=== PATIENT | male | born 1955 | race African-American/Black ===

== ENCOUNTER 2017-01-30 09:12 | Emergency (ER) | payer BC ==
[2017-01-30 09:16] VITALS: BP 170/79
[2017-01-30] MEDS ORDERED: DEXAMETHASONE SOD PHOS INJ 10 MG/1 ML VIAL IM ONE (09:30)
--- NOTE | 2017-01-30 09:36 | ER Document Report ---
ED General - General Chief Complaint: Hip Pain Stated Complaint: HIP PAIN Time Seen by Provider: 01/30/17 09:24 Mode of Arrival: Ambulatory Information source: Patient Notes: 61-year-old male history of back pain presents with complaints of hip pain and back pain of 2 day duration. Patient notes he was taking his oxycodone with no improvement. Patient denies any cauda equina concerns. Otherwise patient is at baseline denies any traumatic incidents denies any IV drug use TRAVEL OUTSIDE OF THE [place] IN LAST 30 DAYS: No - HPI Onset: Other - 2-3 day duration Onset/Duration: Persistent Quality of pain: Achy Severity: Mild Pain Level: 1 Associated symptoms: Body/muscle aches Exacerbated by: Movement Relieved by: Denies Similar symptoms previously: Yes Recently seen / treated by doctor: Yes - Related Data Allergies/Adverse Reactions: celecoxib [From Celebrex] Allergy (Severe, Verified 01/30/17 09:15) rash Past Medical History - Social History Smoking Status: Current Every Day Smoker Cigarette use (# per day): Yes Chew tobacco use (# tins/day): No Smoking Education Provided: No Frequency of alcohol use: None Drug Abuse: None Family History: Reviewed & Not Pertinent - Past Medical History Cardiac Medical History: Reports: Hx Hypertension - on meds Denies: Hx Coronary Artery Disease, Hx Heart Attack Pulmonary Medical History: Denies: Hx Asthma, Hx Bronchitis, Hx COPD, Hx Pneumonia Neurological Medical History: Denies: Hx Cerebrovascular Accident, Hx Seizures Endocrine Medical History: Reports: Hx Diabetes Mellitus Type 2 Renal/ Medical History: Denies: Hx Peritoneal Dialysis Musculoskeltal Medical History: Reports Hx Arthritis - all over, Reports Hx Musculoskeletal Deformity - Immunizations Immunizations up to date: Yes Hx Diphtheria, Pertussis, Tetanus Vaccination: No Review of Systems - Review of Systems Notes: REVIEW OF SYSTEMS: CONSTITUTIONAL : Denies fever, chills, or sweats. Denies recent illness. EENT: Denies eye, ear, throat, or mouth pain or symptoms. Denies nasal or sinus congestion or discharge. Denies throat, tongue, or mouth swelling or difficulty swallowing. CARDIOVASCULAR: Denies chest pain. Denies palpitations or racing or irregular heart beat. Denies ankle edema. RESPIRATORY: Denies cough, cold, or chest congestion. Denies shortness of breath, difficulty breathing, or wheezing. GASTROINTESTINAL: Denies abdominal pain or distention. Denies nausea, vomiting , or diarrhea. Denies blood in vomitus, stools, or per rectum. Denies black, tarry stools. Denies constipation. GENITOURINARY: Denies difficulty urinating, painful urination, burning, frequency, blood in urine, or discharge. MUSCULOSKELETAL: Admits to back pain hip pain right upper side pain SKIN: Denies rash, lesions or sores. HEMATOLOGIC : Denies easy bruising or bleeding. LYMPHATIC: Denies swollen, enlarged glands. NEUROLOGICAL: Denies confusion or altered mental status. Denies passing out or loss of consciousness. Denies dizziness or lightheadedness. Denies headache. Denies weakness or paralysis or loss of use of either side. Denies problems with gait or speech. Denies sensory loss, numbness, or tingling. Denies seizures. PSYCHIATRIC: Denies anxiety or stress. Denies depression, suicidal ideation, or homicidal ideation. ALL OTHER SYSTEMS REVIEWED AND NEGATIVE. Dictation was performed using [employer] voice recognition software PHYSICAL EXAMINATION: GENERAL: Well-appearing, well-nourished and in no acute distress. HEAD: Atraumatic, normocephalic. EYES: Pupils equal round and reactive to light, extraocular movements intact, sclera anicteric, conjunctiva are normal. ENT: Nares patent, oropharynx clear without exudates. Moist mucous membranes. NECK: Normal range of motion, supple without lymphadenopathy LUNGS: Breath sounds clear to auscultation bilaterally and equal. No wheezes rales or rhonchi. HEART: Regular rate and rhythm without murmurs ABDOMEN: Soft, nontender, nondistended abdomen. No guarding, no rebound. No masses appreciated. Musculoskeletal: Normal range of motion, no pitting or edema. No cyanosis. Generalized tenderness on palpation of the hips the low back and scapula NEUROLOGICAL: Cranial nerves grossly intact. Normal speech, normal gait. Normal sensory, motor exams PSYCH: Normal mood, normal affect. SKIN: Warm, Dry, normal turgor, no rashes or lesions noted. -: Yes ROS unobtainable due to patient's medical condition Physical Exam - Vital signs Vitals: Temp Pulse Resp BP Pulse Ox 98.4 F 107 H 18 170/79 H 99 01/30/17 09:15 01/30/17 09:15 01/30/17 09:15 01/30/17 09:15 01/30/17 09:15 Course - Re-evaluation Re-evalutation: 01/30/17 09:34 Patient denies a history of diabetes, I will treat him with steroids, I did want to use Toradol but appears to have an allergy to Celebrex which he does not know about he states Otherwise he is well-appearing in no distress will be discharged home with continued steroid use After performing a Medical Screening Examination, I estimate there is LOW risk for EXPANDING OR RUPTURED ABDOMINAL AORTIC ANEURYSM, CAUDA EQUINA SYNDROME, EPIDURAL MASS LESION, or HERNIATED DISK CAUSING SEVERE SPINAL STENOSIS, thus I consider the discharge disposition reasonable. I have reevaluated this patient multiple times and no significant life threatening changes are noted. The patient and I have discussed the diagnosis and risks, and we agree with discharging home and close follow-up. We also discussed returning to the Emergency Department immediately if new or worsening symptoms occur with the understanding that symptoms and presentations can change. We have discussed the symptoms which are most concerning (e.g., saddle anesthesia, urinary or bowel incontinence or retention, changing or worsening pain) that necessitate immediate return. - Vital Signs Vital signs: Temp Pulse Resp BP Pulse Ox 98.4 F 107 H 18 170/79 H 99 01/30/17 09:15 01/30/17 09:15 01/30/17 09:15 01/30/17 09:15 01/30/17 09:15 Discharge - Discharge Clinical Impression: Back pain Qualifiers: Back pain location: low back pain Chronicity: acute Back pain laterality: bilateral Sciatica presence: without sciatica Qualified Code(s): M54.5 - Low back pain Hip pain Qualifiers: Laterality: bilateral Qualified Code(s): M25.551 - Pain in right hip; M25.552 - Pain in left hip Condition: Stable Disposition: HOME, SELF-CARE Instructions: Low Back Pain ([facility]) Additional Instructions: The medications prescribed to you today will not interfere with your pain contract, please contact your pain specialist if symptoms are worsening return immediately if there are any other concerns Prescriptions: Prednisone [Deltasone 20 mg Tablet] 3 tab PO DAILY 5 Days tablet
== END 2017-01-30 09:38 | disposition home or self-care (01) ==
LOC: ER 09:12
DX: M54.5 Low back pain (principal); M25.552 Pain in left hip; M54.9 Dorsalgia, unspecified; F17.210 Nicotine dependence, cigarettes, uncomplicated
CPT/HCPCS: 99283; 96372; J1100

== ENCOUNTER 2017-02-17 10:41 | Observation (INO) | payer BC ==
[2017-02-17 12:15] LABS: ABSOLUTE EOSINOPHILS # (AUTO) 0.1 10^3/uL (0.0-0.6); ABSOLUTE LYMPHOCYTES (AUTO) 1.7 10^3/uL (0.5-4.7); ABSOLUTE MONOCYTES (AUTO) 0.4 10^3/uL (0.1-1.4); ABSOLUTE NEUT (AUTO) 1.9 10^3/uL (1.7-8.2); BASOPHILS % (AUTO) 0.9 % (0-2); EOSINOPHILS % (AUTO) 3.4 % (0-6); HEMATOCRIT 35.1 % (37.9-51.0); HEMOGLOBIN 11.3 g/dL (13.5-17.0); HGB HCT DIFFERENCE -1.2; LYMPHOCYTES % (AUTO) 40.6 % (13-45); MEAN CORPUSCULAR HEMOGLOBIN 25.8 pg (27.0-33.4); MEAN CORPUSCULAR HGB CONC 32.3 g/dL (32.0-36.0); MEAN CORPUSCULAR VOLUME 80 fl (80-97); MONOCYTES % (AUTO) 10.3 % (3-13); RED BLOOD COUNT 4.39 10^6/uL (4.35-5.55); RED CELL DISTRIBUTION WIDTH 15.5 % (11.5-14.0); SEGMENTED NEUTROPHILS % (AUTO) 44.8 % (42-78); WHITE BLOOD COUNT 4.2 10^3/uL (4.0-10.5)
[2017-02-17 12:34] LABS: ALANINE AMINOTRANSFERASE 48 U/L (21-72); ALBUMIN 3.9 g/dL (3.5-5.0); ALKALINE PHOSPHATASE 63 U/L (38-126); ANION GAP 11 (5-19); ASPARTATE AMINO TRANSFERASE 22 U/L (17-59); BILIRUBIN,DIRECT 0.3 mg/dL (0.0-0.4); BILIRUBIN,TOTAL 0.7 mg/dL (0.2-1.3); BLOOD UREA NITROGEN 8 mg/dL (7-20); CARBON DIOXIDE 29 mmol/L (22-30); CHLORIDE 102 mmol/L (98-107); CREATININE RESULT 0.82 mg/dL (0.52-1.25); GLUCOSE 110 mg/dL (75-110); POTASSIUM 3.8 mmol/L (3.6-5.0); SODIUM 142.1 mmol/L (137-145); TOTAL PROTEIN 6.5 g/dL (6.3-8.2)
--- NOTE | 2017-02-17 14:06 | RADIOLOGY REPORT (SQ) ---
EXAM DESCRIPTION: MRI LUMBAR SPINE WITHOUT COMPLETED DATE/TIME: 02/17/2017 12:51 pm REASON FOR STUDY: LUMBAR RADICULOPATHY COMPARISON: CT abdomen pelvis 04/12/2014 TECHNIQUE: Sagittal and Axial imaging includes T1, T2, STIR and gradient echo sequences. Coronal T2/ HASTE imaging. LIMITATIONS: None. FINDINGS: VISUALIZED UPPER ABDOMEN: Limited evaluation. No acute or suspicious findings suggested. SEGMENTATION: No transitional anatomy. The lowest well-developed disc space is labeled L5-S1. ALIGNMENT: Mild convex rightward degenerative lumbar curvature, grade 1 anterolisthesis of L4 over L5 VERTEBRAE: Intact. BONE MARROW: Sclerotic vertebral body endplates at L3-4. DISC SIGNAL: Diffuse decreased T2 weighted intervertebral disc signal. POSTERIOR ELEMENTS: Generally intact. No pars defect evident. HARDWARE: None in the spine. CORD AND CONUS: Normal in size and signal intensity. Conus at the T12 level. SOFT TISSUES: No aortic aneurysm seen. No bulky retroperitoneal adenopathy or mass. No paraspinal mas s or fluid. T11-12: Mild diffuse posterior disc bulging, moderate bilateral facet hypertrophy. No central steno sis. Mild bilateral foraminal narrowing without exiting nerve root impingement T12-L1: Mild diffuse posterior disc bulge and bony spurring, moderate bilateral facet and ligament h ypertrophy. Mild central canal stenosis. No significant foraminal narrowing. L1-L2: Moderate diffuse posterior disc bulging and facet and ligament hypertrophy. Moderate central canal stenosis with partial effacement of the CSF around the lumbar nerve roots best shown on axial T 2 image 5 and sagittal image 9. Moderate bilateral foraminal narrowing without exiting L1 nerve root impingement. L2-L3: Moderate diffuse posterior disc bulge and bony spurring, bulky bilateral facet and ligament hy pertrophy. Severe central canal stenosis with effacement of the CSF around the lumbar nerve roots be st shown on axial T2 image 11. There is moderate right and left foraminal narrowing without definite exiting L2 nerve root impingement. L3-L4: Moderate diffuse posterior disc bulge and bulky bilateral facet and ligament hypertrophy is pr esent. Severe central canal stenosis is present, best shown on axial T2 image 18 and sagittal image 7. Moderate right and high-grade left foraminal narrowing is present with partial effacement of the fat around the exiting L3 nerve roots bilaterally left greater than right. L4-L5: Grade 1 anterolisthesis of L4 over L5, broad diffuse disc bulge and bony spurring, massive ernesto ateral facet hypertrophy. Severe central canal stenosis best shown on axial T2 image 24 and sagittal image 9. Moderate to high-grade bilateral foraminal narrowing with partial effacement of the fat ar ound the exiting L4 nerve roots bilaterally. L5-S1: Broad diffuse posterior disc bulge and bony spurring with a right paracentral disc herniation is present. This asymmetrically flattens the thecal sac right greater than left at the takeoff of th e right S1 nerve root, best shown on sagittal T2 image 8, axial T2 image 29, and axial T1 image 20. Elsewhere at L5-S1 there is mild central canal narrowing. High-grade right and left foraminal stenos is with effacement of the fat around the exiting L5 nerve roots. SACRUM: Visualized upper sacrum intact. OTHER: No other significant findings. IMPRESSION: Severe central canal stenosis at L2-3, L3-4, and L4-5 Moderate central canal stenosis at L1-2 Right paracentral disc herniation at L5-S1 flattening the proximal right S1 nerve root TECHNICAL DOCUMENTATION: JOB ID: [id number] [employer]- All Rights Reserved
[2017-02-17] MEDS ORDERED: METHYLPREDNISOLONE INJ 125 MG/2 ML SDV IV ONE (15:30)
[2017-02-17 15:41] VITALS: BP 135/75
[2017-02-17] MEDS ORDERED: (PENDING PHARMACY ID) (Oxycodone Hcl/Acetaminophen [Percocet 10-325 Mg Tablet] 1 TAB) PO PRN (16:17)
[2017-02-17] MEDS ORDERED: BUTALB/ACETAMINOPHEN/CAFFEINE 1 TAB EACH PO PRN (16:17)
[2017-02-17] MEDS ORDERED: TIZANIDINE HCL 4 MG TABLET PO PRN (16:17)
--- NOTE | 2017-02-17 16:25 | PDOC H&P ---
History of Present Illness Admission Date/PCP: 02/17/17 10:41 OLIVER GALVEZ MD History of Present Illness: YEN GOEL is a 61 year old male, he has a history of hypertension, chronic pain syndrome from spinal stenosis, he follows with pain management he came to the office today because of severe back pain with difficulty ambulating. I saw him in the office yesterday when he came for evaluation of low back pain he was prescribed Arthrotec for inflammation, he is already on oxycodone/APAP from pain clinic. He was admitted for observation and management of his symptoms MRI of the lumbar spine was done without contrast showed severe central canal stenosis at L2-L3, L3-L4 and L4 through L5 with moderate central canal stenosis at L1-L2 also found was a right paracentral disc herniation at L5-S1 flattening the proximal right S1 nerve root. He has severe multilevel spinal stenosis Past Medical History Cardiac Medical History: Reports: Hypertension - on meds Renal/ Medical History: Reports: Other - Benign prostate enlargement Musculoskeltal Medical History: Reports: Arthritis - all over Social History Smoking Status: Former Smoker Frequency of Alcohol Use: Rare Hx Recreational Drug Use: No Drugs: None Hx Prescription Drug Abuse: No Family History Family History: Reviewed & Not Pertinent Parental Family History Reviewed: Yes Children Family History Reviewed: Yes Sibling(s) Family History Reviewed.: Yes Medication/Allergy Home Medications: Butalb/Acetaminophen/Caffeine [[id number]-Pyhq 50-325-40] 1 tab PO Q6HP PRN 02/17/17 Diclofenac Sodium/Misoprostol [Diclofenac-Misoprost 75-200 Tb] 1 tab PO BID 03/26 Lisinopril/Hydrochlorothiazide [Zestoretic 20-12.5 mg Tablet] 1 tab PO DAILY 03/26 Metformin HCl [Glucophage 500 mg Tablet] 500 mg PO BIDBS 02/17/17 Metoprolol Tartrate [Lopressor 50 mg Tablet] 50 mg PO Q12 02/17/17 Oxycodone HCl/Acetaminophen [Percocet 10-325 mg Tablet] 1 tab PO 5XDP PRN Tamsulosin HCl [Flomax 0.4 mg Cap.sr] 0.4 mg PO DAILY 02/17/17 Tizanidine HCl [Zanaflex 4 mg Tablet] 4 mg PO TIDP PRN 02/17/17 Allergies/Adverse Reactions: celecoxib [From Celebrex] Allergy (Severe, Verified 01/30/17 09:15) rash Review of Systems Constitutional: ABSENT: chills, fever(s), headache(s), weight gain, weight loss Eyes: ABSENT: visual disturbances Ears: ABSENT: hearing changes Cardiovascular: ABSENT: chest pain, dyspnea on exertion, edema, orthropnea, palpitations Respiratory: ABSENT: cough, hemoptysis Gastrointestinal: ABSENT: abdominal pain, constipation, diarrhea, hematemesis, hematochezia, nausea, vomiting Genitourinary: ABSENT: dysuria, hematuria Musculoskeletal: PRESENT: back pain Integumentary: ABSENT: rash, wounds Neurological: ABSENT: abnormal gait, abnormal speech, confusion, dizziness, focal weakness, syncope Psychiatric: ABSENT: anxiety, depression, homidical ideation, suicidal ideation Endocrine: ABSENT: cold intolerance, heat intolerance, menstrual abnormalities, polydipsia, polyuria Hematologic/Lymphatic: ABSENT: easy bleeding, easy bruising, lymphadenopathy Physical Exam Vital Signs: Temp Pulse Resp BP Pulse Ox 98.4 F 68 20 135/75 H 97 02/17/17 15:37 02/17/17 15:37 02/17/17 15:37 02/17/17 15:37 02/17/17 15:37 Intake & Output 02/16/17 02/17/17 02/18/17 06:59 06:59 06:59 Weight 92.1 kg General appearance: PRESENT: no acute distress, well-developed, well-nourished Head exam: PRESENT: atraumatic, normocephalic Eye exam: PRESENT: conjunctiva pink, EOMI, PERRLA Ear exam: PRESENT: normal external ear exam Mouth exam: PRESENT: moist, tongue midline Neck exam: PRESENT: full ROM Respiratory exam: PRESENT: clear to auscultation ernesto Cardiovascular exam: PRESENT: RRR, +S1, +S2 Pulses: PRESENT: normal dorsalis pedis pul, +2 pedal pulses bilateral GI/Abdominal exam: PRESENT: normal bowel sounds, soft Rectal exam: PRESENT: deferred Neurological exam: PRESENT: alert, awake, oriented to person, oriented to place , oriented to time, oriented to situation, CN II-XII grossly intact Psychiatric exam: PRESENT: appropriate affect, normal mood Skin exam: PRESENT: dry, intact, warm Results Laboratory Results: 02/17/17 12:06 02/17/17 12:06 02/17/17 02/17/17 12:06 12:06 WBC 4.2 RBC 4.39 Hgb 11.3 L Hct 35.1 L MCV 80 MCH 25.8 L MCHC 32.3 RDW 15.5 H Plt Count 235 Seg Neutrophils % 44.8 Lymphocytes % 40.6 Monocytes % 10.3 Eosinophils % 3.4 Basophils % 0.9 Absolute Neutrophils 1.9 Absolute Lymphocytes 1.7 Absolute Monocytes 0.4 Absolute Eosinophils 0.1 Absolute Basophils 0.0 Sodium 142.1 Potassium 3.8 Chloride 102 Carbon Dioxide 29 Anion Gap 11 BUN 8 Creatinine 0.82 Est GFR ( Amer) > 60 Est GFR (Non-Af Amer) > 60 Glucose 110 Calcium 10.0 Total Bilirubin 0.7 AST 22 ALT 48 Alkaline Phosphatase 63 Total Protein 6.5 Albumin 3.9 Impressions: Lumbar Spine MRI 02/17/17 00:00 IMPRESSION: Severe central canal stenosis at L2-3, L3-4, and L4-5 Moderate central canal stenosis at L1-2 Right paracentral disc herniation at L5-S1 flattening the proximal right S1 nerve root Assessment & Plan - Diagnosis (1) Spinal stenosis of lumbar region with neurogenic claudication Is this a current diagnosis for this admission?: Yes Plan: Patient is admitted for observation treated with IV Solu-Medrol, continued on regular home meds, he be referred to neurosurgeon outpatient tomorrow (2) Lumbar radiculopathy Is this a current diagnosis for this admission?: Yes
--- NOTE | 2017-02-17 16:28 | PDOC DISCHARGE SUMMARY ---
General - Admit/Disc Date/PCP Admission Date/Primary Care Provider: 02/17/17 10:41 OLIVER GALVEZ MD Discharge Date: 02/17/17 - Discharge Diagnosis (1) Spinal stenosis of lumbar region with neurogenic claudication Is this a current diagnosis for this admission?: Yes (2) Lumbar radiculopathy Is this a current diagnosis for this admission?: Yes - Additional Information Discharge Diet: Regular Discharge Activity: Activity As Tolerated Home Medications: Butalb/Acetaminophen/Caffeine [Wyqtdl-Snkfbjvi-Ific 50-325-40] 1 tab PO Q6HP PRN 02/17/17 Diclofenac Sodium/Misoprostol [Diclofenac-Misoprost 75-200 Tb] 1 tab PO BID 03/26 Lisinopril/Hydrochlorothiazide [Zestoretic 20-12.5 mg Tablet] 1 tab PO DAILY 03/26 Metformin HCl [Glucophage 500 mg Tablet] 500 mg PO BIDBS 02/17/17 Metoprolol Tartrate [Lopressor 50 mg Tablet] 50 mg PO Q12 02/17/17 Oxycodone HCl/Acetaminophen [Percocet 10-325 mg Tablet] 1 tab PO 5XDP PRN Tamsulosin HCl [Flomax 0.4 mg Cap.sr] 0.4 mg PO DAILY 02/17/17 Tizanidine HCl [Zanaflex 4 mg Tablet] 4 mg PO TIDP PRN 02/17/17 History of Present Illness History of Present Illness: YEN GOEL is a 61 year old male, he has a history of hypertension, chronic pain syndrome from spinal stenosis, he follows with pain management he came to the office today because of severe back pain with difficulty ambulating. I saw him in the office yesterday when he came for evaluation of low back pain he was prescribed Arthrotec for inflammation, he is already on oxycodone/APAP from pain clinic. He was admitted for observation and management of his symptoms MRI of the lumbar spine was done without contrast showed severe central canal stenosis at L2-L3, L3-L4 and L4 through L5 with moderate central canal stenosis at L1-L2 also found was a right paracentral disc herniation at L5-S1 flattening the proximal right S1 nerve root. He has severe multilevel spinal stenosis Hospital Course Hospital Course: He was admitted for observation, he was treated with IV Solu-Medrol and continued on his regular pain medication including oxycodone/APAP, he would need to see neurosurgeon for evaluation of his spine, he has severe spinal stenosis of the lumbar region affecting ambulation. He may need surgical intervention at this point since the disease process is affecting his activities of daily living Physical Exam Vital Signs: Temp Pulse Resp BP Pulse Ox 98.4 F 74 20 135/75 H 97 02/17/17 15:37 02/17/17 16:00 02/17/17 15:37 02/17/17 15:37 02/17/17 15:37 Intake & Output 02/16/17 02/17/17 02/18/17 06:59 06:59 06:59 Weight 92.1 kg General appearance: PRESENT: no acute distress, well-developed, well-nourished Head exam: PRESENT: atraumatic, normocephalic Eye exam: PRESENT: conjunctiva pink, EOMI, PERRLA Ear exam: PRESENT: normal external ear exam Mouth exam: PRESENT: moist, tongue midline Neck exam: PRESENT: full ROM Respiratory exam: PRESENT: clear to auscultation ernesto Cardiovascular exam: PRESENT: RRR, +S1, +S2 GI/Abdominal exam: PRESENT: normal bowel sounds, soft Rectal exam: PRESENT: deferred Neurological exam: PRESENT: alert, awake, oriented to person, oriented to place , oriented to time, oriented to situation, CN II-XII grossly intact Psychiatric exam: PRESENT: appropriate affect, normal mood Skin exam: PRESENT: dry, intact, warm Results Laboratory Results: 02/17/17 12:06 02/17/17 12:06 02/17/17 02/17/17 12:06 12:06 WBC 4.2 RBC 4.39 Hgb 11.3 L Hct 35.1 L MCV 80 MCH 25.8 L MCHC 32.3 RDW 15.5 H Plt Count 235 Seg Neutrophils % 44.8 Lymphocytes % 40.6 Monocytes % 10.3 Eosinophils % 3.4 Basophils % 0.9 Absolute Neutrophils 1.9 Absolute Lymphocytes 1.7 Absolute Monocytes 0.4 Absolute Eosinophils 0.1 Absolute Basophils 0.0 Sodium 142.1 Potassium 3.8 Chloride 102 Carbon Dioxide 29 Anion Gap 11 BUN 8 Creatinine 0.82 Est GFR ( Amer) > 60 Est GFR (Non-Af Amer) > 60 Glucose 110 Calcium 10.0 Total Bilirubin 0.7 AST 22 ALT 48 Alkaline Phosphatase 63 Total Protein 6.5 Albumin 3.9 Impressions: Lumbar Spine MRI 02/17/17 00:00 IMPRESSION: Severe central canal stenosis at L2-3, L3-4, and L4-5 Moderate central canal stenosis at L1-2 Right paracentral disc herniation at L5-S1 flattening the proximal right S1 nerve root
[2017-02-17] MEDS ORDERED: (PENDING PHARMACY ID) (Lisinopril/Hydrochlorothiazide [Zestoretic 20-12.5 Mg Tablet] 1 TAB PO SCH (16:30)
[2017-02-17] MEDS ORDERED: METFORMIN HCL 500 MG TABLET PO SCH (17:00)
[2017-02-17] MEDS ORDERED: TAMSULOSIN HCL 0.4 MG CAP.SR.24H PO SCH (18:00)
[2017-02-17] MEDS ORDERED: DICLOFENAC SODIUM PO SCH (18:00)
[2017-02-17] MEDS ORDERED: MISOPROSTOL PO SCH (18:00)
[2017-02-17] MEDS ORDERED: [UNRECOGNIZED DRUG - OTHER] PO SCH (18:00)
[2017-02-17] MEDS ORDERED: OXYCODONE HCL IR 5 MG TABLET PO PRN (19:00)
[2017-02-17] MEDS ORDERED: OXYCODONE-ACETAMINOPHEN 5-325 MG TABLET PO PRN (19:00)
[2017-02-17] MEDS ORDERED: METOPROLOL TARTRATE 50 MG TABLET PO SCH (22:00)
[2017-02-17] MEDS ORDERED: METHYLPREDNISOLONE INJ 125 MG/2 ML SDV IV SCH (22:00)
[2017-02-17] MEDS ORDERED: DICLOFENAC SODIUM 25 MG TABLET.DR PO SCH ×2 (22:00)
[2017-02-17] MEDS ORDERED: MISOPROSTOL 0.2 MG TABLET PO SCH ×2 (22:00)
[2017-02-18] MEDS ORDERED: HYDROCHLOROTHIAZIDE 12.5 MG CAPSULE PO SCH (10:00)
[2017-02-18] MEDS ORDERED: LISINOPRIL 10 MG TABLET PO SCH (10:00)
== END 2017-02-17 20:23 | disposition home or self-care (01) ==
LOC: 4S 10:41
PROVIDERS: ADMIT Internal Medicine; ATTEND Internal Medicine
DX: M48.062 Spinal stenosis, lumbar region with neurogenic claudication (principal); M54.16 Radiculopathy, lumbar region; I10 Essential (primary) hypertension; N40.0 Benign prostatic hyperplasia without lower urinary tract symptoms; Z79.899 Other long term (current) drug therapy; Z79.84 Long term (current) use of oral hypoglycemic drugs; Z79.891 Long term (current) use of opiate analgesic; Z87.891 Personal history of nicotine dependence
CPT/HCPCS: 36415; 85025; 80076; 80048; 72148; J2930

== ENCOUNTER 2018-02-11 20:41 | Emergency (ER) | payer BC ==
[2018-02-11] MEDS ORDERED: LIDOCAINE 5% (700 MG) TRANSDERMAL ADH..PATCH TP ONE (23:11)
[2018-02-11] MEDS ORDERED: ACETAMINOPHEN 325 MG TABLET PO ONE (23:11)
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
[2018-02-12 01:05] VITALS: BP 141/83
== END 2018-02-12 00:27 | disposition home or self-care (01) ==
LOC: ER 20:41
DX: S30.811A Abrasion of abdominal wall, initial encounter (principal); S09.90XA Unspecified injury of head, initial encounter; S69.90XA Unspecified injury of unspecified wrist, hand and finger(s), initial encounter; S99.911A Unspecified injury of right ankle, initial encounter; M25.571 Pain in right ankle and joints of right foot; M79.641 Pain in right hand; M79.642 Pain in left hand; Y00.XXXA Assault by blunt object, initial encounter; I10 Essential (primary) hypertension; Z88.8 Allergy status to other drugs, medicaments and biological substances
CPT/HCPCS: 99284